=== PATIENT | female | born 1990 | race Caucasian/White ===

== ENCOUNTER 2018-12-31 14:19 | Emergency (ER) | payer SELFPAY ==
--- NOTE | 2018-12-31 15:18 | Emergency Department Report ---
Blank Doc - Documentation Documentation: This is a 28-year-old female that presents with dysuria, vaginal irritation and vaginal discharge. This initial assessment/diagnostic orders/clinical plan/treatment(s) is/are subject to change based on patient's health status, clinical progression and re- assessment by fellow clinical providers in the ED. Further treatment and workup at subsequent clinical providers discretion. Patient/guardians urged not to elope from the ED as their condition may be serious if not clinically assessed and managed. Initial orders include: 1- Patient sent to [facility] for further evaluation and treatment 2- UA 3- Wet prep
[2018-12-31 15:20] VITALS: BP 137/82
== END 2018-12-31 18:00 | disposition left against medical advice (07) ==
LOC: ED 14:19
DX: N89.8 Other specified noninflammatory disorders of vagina (principal); Z53.21 Procedure and treatment not carried out due to patient leaving prior to being seen by health care provider